=== PATIENT | male | born 1995 | race African-American/Black ===

== ENCOUNTER 2017-08-29 04:42 | Emergency (ER) | payer OTHER ==
[~2017-08-29] VITALS: Ht 177.8 cm; Wt 64.0 kg
[2017-08-29] MEDS ORDERED: KETOROLAC 60MG/2ML VIAL IM NR (05:45)
[2017-08-29] MEDS ORDERED: HYDROCODONE/ACETAMINOPHEN 5/325MG TABLET PO ONE (08:15)
[2017-08-29] MEDS ORDERED: KETOROLAC 15MG/ML VIAL IV ONE (08:15)
[2017-08-29 08:26] LABS: HEMATOCRIT. 41.5 % (42.0-52.0); HEMOGLOBIN. 14.2 g/dL (14.0-18.0); MEAN CORPUSCULAR HEMOGLOBIN 29.9 pg (28.0-32.0); MEAN CORPUSCULAR VOLUME 87.4 fL (80.0-94.0); MEAN PLATELET VOLUME 8.8 fl (7.4-10.4); PLATELET 212 x1000/uL (130-400); RED BLOOD CELL COUNT 4.74 mill/uL (4.7-6.1); RED CELL DISTRIBUTION WIDTH 13.6 % (11.6-14.6)
[2017-08-29 08:46] LABS: CARBON DIOXIDE 28 mEq/L (21-32); CHLORIDE 104 mEq/L (98-107)
[2017-08-29 08:53] LABS: PLATELET ESTIMATE NORMAL
[2017-08-29 09:30] VITALS: BP 115/62
== END 2017-08-29 10:16 | disposition short-term general hospital (02) ==
LOC: ER 04:42
DX: S36.116A Major laceration of liver, initial encounter (principal); S22.41XA Multiple fractures of ribs, right side, initial encounter for closed fracture; J93.9 Pneumothorax, unspecified; M79.641 Pain in right hand; M25.512 Pain in left shoulder; Y00.XXXA Assault by blunt object, initial encounter; Y93.89 Activity, other specified; Y92.89 Other specified places as the place of occurrence of the external cause; Y99.8 Other external cause status
CPT/HCPCS: 36415; 71101; 73130; 74177; 80053; 85025; 96372; 96374; 99285; J1885; Z7610